=== PATIENT | female | born 1990 | race American Indian/Alaskan Native ===

== ENCOUNTER 2020-10-14 14:18 | Emergency (ER) | payer SELFPAY ==
--- NOTE | 2020-10-14 14:54 | Emergency Department Report ---
HPI - General Chief Complaint: Allergic Reaction Time Seen by Provider: 10/14/20 14:45 - HPI HPI: Room 23 Patient is a 30-year-old female present with a chief complaint of allergic reaction. The patient states approximate 1 hour prior to arrival she was eating some red beans and rice began having swelling of her lips and scratchy throat. The patient states she found out the sausage from the red beans and rice is cooked on the same plate that catfish is fried on. The patient has known allergy to fish. Patient states she took Benadryl 50 mg prior to arrival to the ED. ED Past Medical Hx - Past Medical History Hx Asthma: Yes - Surgical History Additional Surgical History: [place] teeth - Family History Family history: no significant - Social History Smoking Status: Never Smoker Substance Use Type: None (Denies illicit drug use), Alcohol (Occasional) - Medications Home Medications: Home Medications Medication Instructions Recorded Confirmed Last Taken Type EPINEPHrine (NF) [Epipen (Nf)] 0.3 mg IM ONCE PRN #1 syringekit 10/14/20 Unknown Rx Famotidine [Pepcid] 20 mg PO BID #6 tablet 10/14/20 Unknown Rx Prednisone [predniSONE 10 mg 10 mg PO .TAPER #1 tab.ds.pk 10/14/20 Unknown Rx (6-Day Pack, 21 Tabs)] diphenhydrAMINE [Benadryl CAP] 50 mg PO Q6HR #24 capsule 10/14/20 Unknown Rx ED Review of Systems ROS: Stated complaint: ALLERGIC REACTION Other details as noted in HPI Constitutional: no symptoms reported Eyes: denies: eye pain ENT: throat pain (Scratchy throat), other (Ears feel clogged) Respiratory: shortness of breath Cardiovascular: denies: chest pain Endocrine: no symptoms reported Gastrointestinal: denies: abdominal pain Genitourinary: denies: dysuria Musculoskeletal: denies: back pain Neurological: denies: headache Physical Exam - Physical Exam Physical Exam: GENERAL: The patient is well-developed well-nourished female lying on stretcher not appearing to be in acute distress. [] HEENT: Normocephalic. Atraumatic. Extraocular motions are intact. Moderate swelling of the lips. Oropharynx clear. Uvula midline. NECK: Supple. There is no stridor CHEST/LUNGS: Clear to auscultation. There is no respiratory distress noted. HEART/CARDIOVASCULAR: Regular. There is no tachycardia. There is no gallop rub or murmur. ABDOMEN: Abdomen is soft, nontender. Patient has normal bowel sounds. There is no abdominal distention. SKIN: There is no rash. There is no edema. There is no diaphoresis. NEURO: The patient is awake, alert, and oriented. The patient is cooperative. The patient has no focal neurologic deficits. The patient has normal speech MUSCULOSKELETAL: There is no evidence of acute injury. ED Course - Reevaluation(s) Reevaluation #1: 10/14/20 19:01 Patient states she feels improved ED Medical Decision Making - Radiology Data Radiology results: report reviewed (Lateral soft tissue neck x-ray), image reviewed (Lateral soft tissue neck x-ray) interpreted by me: Lateral soft tissue neck x-ray-no prevertebral swelling, no evidence of epiglottitis. Airway patent [facility] [address] [place] [address] XRay Report Signed Patient: SEVEN DONOVAN MR#: [id number] : 1990 Acct:[id number] Age/Sex: 30 / F ADM Date: 10/14/20 Loc: ED Attending Dr: Ordering Physician: LAKIA WICK MD Date of Service: 10/14/20 Procedure(s): XR neck soft tissue Accession Number(s): [id number] cc: LAKIA WICK MD Fluoro Time In Minutes: SOFT TISSUE OF THE NECK 2 VIEWS INDICATION / CLINICAL INFORMATION: Allergic reaction, scratchy throat. COMPARISON: None available. FINDINGS: Prevertebral soft tissues are normal in thickness. The epiglottis is unrema rkable. No radiopaque foreign object is identified. Signer Name: Donato Forbes MD FACR Signed: 10/14/2020 3:29 PM Workstation Name: [id number] Transcribed By: MS Dictated By: Donato Forbes MD Electronically Authenticated By: Donato Forbes MD Signed Date/Time: 10/14/20 152 DD/ TD/TT: Print Cancel - Differential Diagnosis Allergic reaction Critical care attestation.: If time is entered above; I have spent that time in minutes in the direct care of this critically ill patient, excluding procedure time. ED Disposition Clinical Impression: Acute allergic reaction Disposition: DC-01 TO HOME OR SELFCARE Is pt being admited?: No Does the pt Need Aspirin: No Condition: Stable Instructions: How to Use an Auto-Injector Pen, Seafood Allergy Additional Instructions: Return to the emergency department should you develop worsening symptoms, inability to tolerate food or liquids, high fever or any other concerns Prescriptions: diphenhydrAMINE [Benadryl CAP] 50 mg PO Q6HR #24 capsule EPINEPHrine (NF) [Epipen (Nf)] 0.3 mg IM ONCE PRN #1 syringekit PRN Reason: Anaphylaxis Famotidine [Pepcid] 20 mg PO BID #6 tablet Prednisone [predniSONE 10 mg (6-Day Pack, 21 Tabs)] 10 mg PO .TAPER #1 tab.ds.pk Referrals: PRIMARY CARE, [Primary Care Provider] - 3-5 Days Time of Disposition: 19:04
[2020-10-14] MEDS ORDERED: methylPREDNISolone Sod Succinate 125 MG/2 ML INJ IV ONE (14:55)
[2020-10-14] MEDS ORDERED: FAMOTIDINE 20 MG/2 ML INJ IV ONE (14:55)
--- NOTE | 2020-10-14 15:33 | XRay Report ---
SOFT TISSUE OF THE NECK 2 VIEWS INDICATION / CLINICAL INFORMATION: Allergic reaction, scratchy throat. COMPARISON: None available. FINDINGS: Prevertebral soft tissues are normal in thickness. The epiglottis is unremarkable. No radiopaque fore ign object is identified. Signer Name: Donato Forbes MD FACSmith Signed: 10/14/2020 3:29 PM Workstation Name: [id number]
[2020-10-14] MEDS ORDERED: LIDOCAINE VISCOUS 2% 15 ML ORAL LIQD PO ONE (17:03)
[2020-10-14] MEDS ORDERED: EPINEPHrine RACEMIC 2.25% 0.5ML NEBU IH ONE (17:03)
[2020-10-14 19:26] VITALS: BP 127/70
== END 2020-10-14 19:28 | disposition home or self-care (01) ==
LOC: ED 14:18
DX: T78.40XA Allergy, unspecified, initial encounter (principal); J45.909 Unspecified asthma, uncomplicated; Z91.013 Allergy to seafood; Z79.899 Other long term (current) drug therapy; X58.XXXA Exposure to other specified factors, initial encounter
CPT/HCPCS: 70360; 94640; 96374; 96375; 99283; J2930; 94644